=== PATIENT | female | born 1985 | race Two or more races ===

== ENCOUNTER 2017-12-13 16:29 | Emergency (ER) | payer OTHER, SELFPAY ==
[2017-12-13 16:31] VITALS: BP 127/90; PULSE 82; RESP 17; TEMP 36.9; O2SAT 97; BMI 22.3
--- NOTE | 2017-12-13 17:32 | ED.VISSUMM ---
- ER Visit Summary Date of Service: 12/13/17 Chief Complaint: Laceration volar surface left index finger History of Present Illness: The patient is a 32 F who is right-handed. She was cutting plastic with a knife. The knife went through the plastic cutting the volar surface of her left index finger. She has a circular flap laceration over the volar fat pad of the left index finger. She denies paresthesia, anesthesia motors. Last tetanus musician unknown. Physical Examination: Vital signs are noted and normal. There is a circular flap type laceration volar surface left index finger. The flexor digitorum superficialis and flexor digitorum profundus are intact. Capillary refill is normal. Sensation is intact, two-point. Capillary refill is normal. There is no subungual hematoma noted. Test Results: None Emergency Department Course and Treatment: Adacel IM and repair of laceration. Laceration was repaired by Dr. Carlos Cruz. Treatment Plan: Wound care and appropriate home-going instructions Disposition: Discharged home in stable improved condition Impression: Laceration volar surface left index finger initial encounter This note was generated with [employer] dictation software. It may contain incorrect words, spelling, and punctuation that were not noted in review of the chart prior to signing ED Disposition - Plan for ED Patient: Disposition: Home or Assisted Living Chief Complaint: Laceration Instructions: ED Laceration Hand Referrals: Care Physician,No Primary [Primary Care Provider] - Sid Domingo MD [STAFF PHYSICIAN] - 7 Days for suture removal Additional Instructions: Clean wound with peroxide and Q-tip 3 times a day then apply bacitracin ointment. If you have any concerns for infection follow-up with Dr. Rascon who you referred to since she do not have a primary care doctor.
[2017-12-13 17:41] VITALS: BP 118/68; PULSE 76; RESP 16; O2SAT 100
== END 2017-12-13 17:43 | disposition home or self-care (01) ==
PROVIDERS: Emergency Provider Emergency Medicine
DX: S61.211A Laceration without foreign body of left index finger without damage to nail, initial encounter (principal); W26.0XXA Contact with knife, initial encounter; Y93.89 Activity, other specified; Y92.89 Other specified places as the place of occurrence of the external cause; Y99.8 Other external cause status
CPT/HCPCS: 12001; 99282

== ENCOUNTER → 2020-01-25 | Outpatient (CLI) | payer SELFPAY | END | disposition home or self-care (01) | LOC: LABSPEC 23:31 | PROVIDERS: Visit Provider Family Medicine Geriatric Medicine | DX: Z03.818 Encounter for observation for suspected exposure to other biological agents ruled out (principal) | CPT/HCPCS: 87426 ==

== ENCOUNTER 2020-01-26 10:46 | Outpatient (RCR) | payer OTHER, SELFPAY | END 2020-02-07 23:59 | LOC: LABSPEC 10:46 | PROVIDERS: Visit Provider Family Medicine Geriatric Medicine | DX: Z03.818 Encounter for observation for suspected exposure to other biological agents ruled out (principal) | CPT/HCPCS: 87426 ==

== ENCOUNTER → 2020-04-17 03:02 | Outpatient (CLI) | payer OTHER, SELFPAY | PROVIDERS: Visit Provider Family Medicine Geriatric Medicine | DX: Z20.822 Contact with and (suspected) exposure to COVID-19 (principal) | CPT/HCPCS: 87426 ==

== ENCOUNTER 2020-06-09 19:54 | Outpatient (RCR) | payer OTHER, SELFPAY | END 2020-07-07 23:59 | LOC: EMPH 19:54 | PROVIDERS: Visit Provider Family Medicine Geriatric Medicine | DX: Z03.818 Encounter for observation for suspected exposure to other biological agents ruled out (principal) | CPT/HCPCS: 87426 ==

== ENCOUNTER 2020-06-10 10:12 | Outpatient (RCR) | payer OTHER, SELFPAY | END 2020-07-07 23:59 | LOC: LABSPEC 10:12 | PROVIDERS: Visit Provider Family Medicine Geriatric Medicine | DX: Z03.818 Encounter for observation for suspected exposure to other biological agents ruled out (principal) ==

== ENCOUNTER 2020-07-14 19:06 | Outpatient (RCR) | payer OTHER, SELFPAY | END 2020-08-07 23:59 | LOC: EMPH 19:06 | PROVIDERS: Visit Provider Family Medicine Geriatric Medicine | DX: Z03.818 Encounter for observation for suspected exposure to other biological agents ruled out (principal) | CPT/HCPCS: 87426 ==

== ENCOUNTER 2020-10-30 18:26 | Outpatient (RCR) | payer OTHER, SELFPAY | END 2020-10-30 19:00 | disposition home or self-care (01) | LOC: MASS 18:26 | PROVIDERS: Referring Provider Clinical Nurse Specialist; Visit Provider Clinical Nurse Specialist | DX: M54.9 Dorsalgia, unspecified (principal); M24.519 Contracture, unspecified shoulder | CPT/HCPCS: 97124 ==

== ENCOUNTER 2021-04-21 10:51 | Outpatient (RCR) | payer OTHER, SELFPAY | END 2021-05-07 23:59 | LOC: LABSPEC 10:51 | PROVIDERS: Referring Provider Family Medicine Geriatric Medicine; Visit Provider Family Medicine Geriatric Medicine | DX: Z20.828 Contact with and (suspected) exposure to other viral communicable diseases (principal) | CPT/HCPCS: 87426 ==

== ENCOUNTER → 2021-10-17 | Outpatient (CLI) | payer OTHER, SELFPAY ==
[2021-10-17 08:21] LABS: Hematocrit 34.2 % (37-47); Mean Corp Hgb Conc 32.2 g/dL (32-36); Mean Corpuscular Hgb 20.8 pg (27.0-32.0); Mean Corpuscular Volume 64.7 fL (81-99); Mean Platelet Vol. 10.9 fl (6.2-12.0); Platelet Count 337 K/mm3 (150-450); RBC Distribution Width CV 14.8 % (11.6-14.6); RBC Distribution Width SD 33.8 fl (35.1-43.9); Red Blood Count 5.29 M/mm3 (4.2-5.4); White Blood Count 11.3 K/mm3 (4.4-11.0)
[2021-10-17 11:31] LABS: HIV - WCH Non-Reactive (Nonreactive); Hepatitis B Surface Antigen Non-Reactive (Nonreactive); Hepatitis C Antibody Non-Reactive (Nonreactive); Rubella IgG Reactive (Nonreactive); Syphilis Antibodies Non-reactive
== END | disposition home or self-care (01) ==
LOC: LAB 07:44
PROVIDERS: PCP Internal Medicine; Visit Provider Obstetrics & Gynecology
DX: O09.521 Supervision of elderly multigravida, first trimester (principal); Z3A.12 12 weeks gestation of pregnancy
CPT/HCPCS: 36415; 85027; 86703; 86762; 86780; 86803; 86850; 86900; 86901; 87340

== ENCOUNTER → 2021-11-21 | Outpatient (CLI) | payer OTHER, SELFPAY | END | disposition home or self-care (01) | PROVIDERS: PCP Internal Medicine; Referring Provider Obstetrics & Gynecology; Visit Provider Obstetrics & Gynecology | DX: Z34.92 Encounter for supervision of normal pregnancy, unspecified, second trimester (principal); Z3A.16 16 weeks gestation of pregnancy | CPT/HCPCS: 36415 ==

== ENCOUNTER → 2022-01-17 | Outpatient (CLI) | payer OTHER, SELFPAY ==
[2022-01-17 09:30] LABS: Hematocrit 33.9 % (37-47); Hemoglobin 10.8 g/dL (12.0-15.0); Mean Corp Hgb Conc 31.9 g/dL (32-36); Mean Corpuscular Hgb 21.6 pg (27.0-32.0); Mean Corpuscular Volume 67.7 fL (81-99); Mean Platelet Vol. 10.8 fl (6.2-12.0); Platelet Count 318 K/mm3 (150-450); RBC Distribution Width CV 15.7 % (11.6-14.6); RBC Distribution Width SD 37.2 fl (35.1-43.9); Red Blood Count 5.01 M/mm3 (4.2-5.4)
[2022-01-17 10:09] LABS: Glucose Challenge Gest 1H 50g 137 mg/dL (70-140)
[2022-01-17 10:35] LABS: Syphilis Antibodies Non-reactive
== END | disposition home or self-care (01) ==
LOC: LAB 07:57
PROVIDERS: PCP Internal Medicine; Visit Provider Obstetrics & Gynecology
DX: O09.522 Supervision of elderly multigravida, second trimester (principal); Z3A.25 25 weeks gestation of pregnancy
CPT/HCPCS: 36415; 82950; 85027; 86780

== ENCOUNTER 2022-02-21 07:45 | Outpatient (CLI) | payer OTHER, SELFPAY ==
[2022-02-21 08:44] LABS: Glucose GTT-Gestation. Fasting 85 mg/dL (<105)
[2022-02-21 10:38] LABS: Glucose GTT-Gestational 2 Hr 153 mg/dL (<165)
[2022-02-21 11:34] LABS: Glucose GTT-Gestational 1 Hr 174 mg/dL (<190)
[2022-02-21 11:43] LABS: Glucose GTT-Gestational 3 Hr 142 L (<145)
== END 2022-02-21 23:59 | disposition home or self-care (01) ==
LOC: LAB 07:45
PROVIDERS: PCP Internal Medicine; Referring Provider Obstetrics & Gynecology; Visit Provider Obstetrics & Gynecology
DX: O99.810 Abnormal glucose complicating pregnancy (principal)
CPT/HCPCS: 36415; 82951; 82952

== ENCOUNTER 2022-04-11 05:03 | Inpatient (IN) | payer OTHER, SELFPAY ==
--- NOTE | 2022-04-09 12:22 | HP.PCM_ITS ---
History and Physical Date of Admission: 04/11/22 Pre-Op History and Physical ? HPI: The patient is a 37 year old female presenting for pre-operative visit. She is scheduled for , for repeat elective cs on 04/11/22. Procedure discussed along with risks, benefits and complications. Other alternatives discussed for management. Consent form signed? Yes. ? ? PAST MEDICAL HISTORY PAST MEDICAL HISTORY Diagnosis Date ? Asthma ? ? last attack 2009 in [facility] ? COVID-19 09/2019 ? Menstrual migraine without status migrainosus, not intractable 11/17/2020 ? ? PAST SURGICAL HISTORY PAST SURGICAL HISTORY Procedure Laterality Date ? BREAST CYST RIGHT, FLUID Right 03/10/2008 ? ? ? CURRENT MEDICATIONS Current Outpatient Medications Medication Sig Dispense Refill ? L.acidoph,plant-B.animal,long (PROBIOMAX DAILY DF) 30 billion cell cpDR Take by mouth. ? ? ? aspirin 81 mg chewable tablet Take 81 mg by mouth once daily. ? ? ? ferrous sulfate (IRON ORAL) Take by mouth. ? ? ? prental multivitamin 27 mg iron- 800 mcg tablet Take 1 tablet by mouth once daily. ? ? ? loratadine (CLARITIN ORAL) Take by mouth. ? ? ? No current facility-administered medications for this visit. ? ? ALLERGIES: Dust ? PERSONAL HISTORY: SOCIAL HISTORY Social History ? Tobacco Use ? Smoking status: Never ? Smokeless tobacco: Never Vaping Use ? Vaping Use: Never used Substance Use Topics ? Alcohol use: Not Currently ? ? Comment: occasionally ? Drug use: No ? FAMILY HISTORY: FAMILY HISTORY FAMILY HISTORY Problem Relation Age of Onset ? Hypertension Mother ? ? Recurrent UTI's Mother ? ? Alcohol/Drug Father ? ? smoker, Etoh ? Cancer Father ? ? Kidney ? No Known Problems Sister ? ? Asthma Brother ? ? No Known Problems Maternal Grandmother ? ? No Known Problems Maternal Grandfather ? ? Arthritis Paternal Grandmother ? ? Kidney failure Paternal Grandfather ? ? No Known Problems Son ? ? ? REVIEW OF SYMPTOMS: negative except as noted above PHYSICAL EXAMINATION: ? VITALS: Blood pressure 108/58, weight 148 lb (67.1 kg), last menstrual period 07/12/2021. ? GENERAL: The patient is well nourished, well hydrated in no acute distress. , The patient is oriented to time, place, and person. ABDOMEN: soft, non tender- gravid GENITALIA: Normal external genitalia ? IMPRESSION: @ 39 weeks ? PLAN: repeat cs at 39 weeks ? Pt has been counseled on risks/benefits and alternatives of surgery including but not limited to anesthesia, bleeding, infection, injury to pelvic structures including bowel, bladder, ureters and vessels. Pt wishes to proceed with surgery at this time. Risk of blood transfusion reviewed. Pre and post op instructions reviewed ? I have reviewed and updated past medical and surgical history, medications and allergies Lotus Herrera MD
[2022-04-11] VITALS (19 sets, daily range): BP systolic 90–117; BP diastolic 45–94; PULSE 68–97; RESP 14–16; TEMP 35.9–36.7; O2SAT 96–99; BMI 29.5
[2022-04-11] MEDS: Lactated Ringers 1,000 ML 999 ML IV (05:25)
[2022-04-11 05:39] LABS: Absolute Lymphocyte Count 1.43 X10^3/uL (0.83-4.51); Absolute Neutrophil Count 9.4 X10^3/uL (2.0-7.7); Basophil# 0.07 X10^3/uL; Basophil% 0.5 % (0-1); Eosinophil# 0.24 X10^3/uL; Eosinophils% 1.9 % (0-5); Hematocrit 36.9 % (37-47); Hemoglobin 11.4 g/dL (12.0-15.0); Lymphocyte # 1.43 X10^3/ul (0.83-4.51); Lymphocyte % 11.2 % (19-41); Mean Corp Hgb Conc 30.9 g/dL (32-36); Mean Corpuscular Hgb 21.3 pg (27.0-32.0); Mean Corpuscular Volume 68.8 fL (81-99); Mean Platelet Vol. 10.8 fl (6.2-12.0); Monocyte# 1.15 X10^3/uL; NRBC Flagged by Analyzer 0 % (0-5); Neutrophil # 9.36 X10^3/uL (2.7-7.7); Neutrophil % 73.6 % (47-70); Platelet Count 286 K/mm3 (150-450); RBC Distribution Width CV 15.3 % (11.6-14.6); RBC Distribution Width SD 36.7 fl (35.1-43.9); Red Blood Count 5.36 M/mm3 (4.2-5.4); White Blood Count 12.7 K/mm3 (4.4-11.0)
[2022-04-11] MEDS: Lactated Ringers 1,000 ML 150 ML IV (06:21)
[2022-04-11] MEDS: Acetaminophen 500 MG Tablet 1000 MG PO ×3 (07:14→18:58)
[2022-04-11] MEDS: Sodium Citrate/Citric Acid 30 ML UDC PO (07:14)
[2022-04-11] MEDS: Cefazolin 2 GM in 0.9% Normal Saline 100 ML IV (07:36)
--- NOTE | 2022-04-11 08:11 | OP.PCM_ITS ---
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 She was then placed in the supine position. She was prepped and draped in the normal sterile fashion. Anesthesia was found to be adequate. At this time a Pfannenstiel skin incision was made with a knife was carried down to the underlying layer of the fascia. The fascial incision was then extended laterally using traction. Attention was then turned to the superior aspect of the fascial edge was grasped with 2 straight Reena clamps tented up and the rectus muscle dissected off sharply bluntly. Rectus muscles were then in the midline bluntly and peritoneum was entered bluntly. Gentle opposing traction was placed. At this time the vesicouterine peritoneum was identified. Scalpel was used to make a uterine incision in a low transverse fashion. The uterus was then entered bluntly gentle opposing traction was placed to extend this incision. Membranes were ruptured clear. Infant's head was brought to the uterine incision was delivered atraumatically. nuchal x 1 loose- reduced. Cord was clamped and cut infant was handed to the waiting nursery team. The Placenta was removed from the uterus. The uterus was then re moved from the abdominal cavity. The uterus was cleared of all clots and debris using a lap. At this time the uterine incision was reapproximated using #1 Vicryl in a running locked fashion. 1-0 vicryl figure of eight sutures placed for hemostasis. Hemostasis was appreciated. Posterior cul-de-sac was then cleared of all clots and debris. Uterus was placed back in the abdominal cavity. Gutters were cleared of all clots and debris. Uterine incision was reevaluated and noted to be of excellent hemostasis. Angie placed over incision. At this time the peritoneum was grasped with Kellys reapproximated using #2 Vicryl suture in a running fashion. Angie placed over rectus. Fascia was then reapproximated using #1 Vicryl in a running fashion. angie placed in subcu layer. Subcu layer was reapproximated with #2 0 plain gut suture in an interrupted fashion. Subcu layer was closed using 4-0 Monocryl in a subcu fashion. Dry sterile dressing was applied. Instrument lap needle count correct ?2. Anticipated normal postoperative course. Presentation: Positive for Vertex Amniotic Membrane Rupture Type: Artificial Amniotic Fluid Description: Clear Placental Delivery Description: Expressed Placenta Disposition: [facility] Cord Vessel Description: 3 Vessels Cord Entanglement: Around neck x 1, loose Nuchal Cord Compression: Without compression Cord Gases: ABG and VBG (1 minute): 8 (5 minute): 9 Delayed Cord Clamping: Yes Complications Risks of Surgery Discussed w/Patient: Bleeding, Anesthesia Risks, Infection, Need for Future C-Sections and Injury to surrounding structure(s) including bowel and bladder Complications: none
[2022-04-11] MEDS: Ketorolac 30 MG/ML Syringe IV ×3 (08:56→20:23)
[2022-04-11] MEDS: Oxytocin 15 Units/NS 250ml 15 UNITS/250 ML IV.SOLN 83 UNITS IV (08:56)
[2022-04-11] MEDS: Lactated Ringers 1,000 ML 100 ML IV (11:41)
[2022-04-11] MEDS: DiphenhydrAMINE 25 MG Capsule PO ×2 (12:58→20:23)
[2022-04-11] MEDS: 0.9% Saline Lock 10 ML Syringe IV ×2 (14:48→20:24)
[2022-04-11] MEDS: Ferrous Sulfate 325 MG Tablet PO (19:09)
[2022-04-12 00:46] VITALS: BP 97/49; PULSE 85; RESP 16; TEMP 36.4
[2022-04-12] MEDS: Acetaminophen 500 MG Tablet 1000 MG PO ×3 (00:47→12:23)
[2022-04-12] MEDS: DiphenhydrAMINE 25 MG Capsule PO (02:25)
[2022-04-12] MEDS: Ketorolac 30 MG/ML Syringe IV (02:25)
[2022-04-12] MEDS: 0.9% Saline Lock 10 ML Syringe IV (02:25)
[2022-04-12 04:57] VITALS: BP 82/45; PULSE 79; RESP 16; TEMP 36.6
[2022-04-12 05:06] VITALS: BP 90/61
[2022-04-12 05:11] LABS: Hematocrit 31.2 % (37-47); Hemoglobin 9.5 g/dL (12.0-15.0); Mean Corp Hgb Conc 30.4 g/dL (32-36); Mean Corpuscular Hgb 21.1 pg (27.0-32.0); Mean Corpuscular Volume 69.3 fL (81-99); Mean Platelet Vol. 10.7 fl (6.2-12.0); Platelet Count 226 K/mm3 (150-450); RBC Distribution Width CV 15.3 % (11.6-14.6); RBC Distribution Width SD 37.6 fl (35.1-43.9); White Blood Count 12.2 K/mm3 (4.4-11.0)
--- NOTE | 2022-04-12 08:13 | PCM.PN.OB ---
Subjective Subjective Pt is doing well. Pain is controlled. She is ambulating and voiding without difficulty. She denies lightheadedness, dizziness, chest pain, shortness of breath, leg pain. She is tolerating regular diet without nausea or vomiting. She desires discharge today. Objective Data Objective Data Vital Signs: Vital Signs Temp Pulse Resp BP Pulse Ox O2 Del Method 97.9 F 79 16 90/61 99 Room Air 04/12/22 04:57 04/12/22 04:57 04/12/22 04:57 04/12/22 05:06 04/11/22 19:36 04/12/22 04:57 Oxygen Delivery Method Room Air Weight: 151 lb 3.2 oz Body Mass Index (BMI) 29.5 Intake & Output: Intake and Output for Last 24 Hours 04/10/22 04/11/22 04/12/22 23:59 23:59 23:59 Intake Total 2248.80 / 2248.80 Output Total 1150 / 1150 1000 / 1000 Balance 1098.80 / 1098.80 -1000 / -1000 Lab / Micro Data Result Diagrams: 04/12/22 05:00 Labs: Laboratory Results - last 24 hr 04/12/22 05:00: WBC 12.2 H, RBC 4.50, Hgb 9.5 L, Hct 31.2 L, MCV 69.3 L, MCH 21.1 L, MCHC 30.4 L, RDW Std Deviation 37.6, RDW Coeff of Chelsi 15.3 H, Plt Count 226, MPV 10.7 Physical Exam Const alert and no apparent distress General Appearance: comfortable HEENT normocephalic Resp normal respiratory effort GI soft to palpation GI Narrative: Soft and ATTP, non acute, dressing c/d/i Assessment & Plan (1) Delivery by section: PLAN: She is postop day 1 from a repeat section. Vital signs are stable. She is meeting milestones for discharge. She desires to go home today. Discharge instructions reviewed. To follow-up in the office in 1 week.
--- NOTE | 2022-04-12 08:18 | DCINST_ITS ---
Discharge Instructions Diet Discharge Diet: No restrictions Activity Discharge Activity: May Not Drive and May Shower May resume sexual activity in: 6 weeks Ice area for (Minutes): 15 Weight Bearing Status: Weight bearing as tolerated Lifting Restrictions: nothing heavier than baby Dressing / Incision Call your doctor if your incision/area has: Continuous Slow Oozing, Sudden Increased Bleeding, Increased Pain/ Swelling, Increased Redness, Foul Smelling Discharge and Swelling at the incision site Call your doctor if you observe: Fever of 101 or Higher, Coldness, Increased Pain, Numbness or Tingling, Change in Color, Inability to urinate, Inability to have a bowel movement, Using more than 1 pad per hour, Shortness of breath, Dizziness, Fainting spells, Swelling in the ankles, Chest pain, Increased palpitations (irregular heartbeat), Calf discomfort and Uncontrolled pain Suture Line Care: Avoid Pulling/Pushing and Avoid Pinching/Bending Remove Dressing in: 3 days Cleanse incision/area with: Soap & Water Follow Up Care Please Follow Up With: Lotus Puckett MD When: 1 week for incision check 6 weeks for exam Test Results: Test results from this visit will be discussed in further detail at your follow- up appointment, if applicable. Discharge Plan Admission Admit Date/Time: 04/11/22 05:03 Primary Reason for Your Visit: Delivery Attending Provider: Lotus Puckett Primary Care Provider: Shana Silva Instructions Patient Instructions: After a Discharge Orders/Prescriptions Prescriptions: New oxycodone-acetaminophen [Percocet] 5-325 mg tablet 1 tab PO Q6H PRN (Reason: pain) 7 Days Qty: 10 0RF ibuprofen 600 mg tablet 600 mg PO Q6H PRN (Reason: pain) Qty: 30 0RF docusate sodium [Colace] 100 mg capsule 100 mg PO BID Qty: 30 0RF Continued ferrous sulfate [Iron (ferrous sulfate)] 325 mg (65 mg iron) Tablet 325 mg PO DAILY [id number] 1 mg Tablet 1 tab PO DAILY Discontinued aspirin 81 mg Tablet 81 mg PO DAILY Referrals / Follow Up: Shana Silva MD [Primary Care Provider] - Disposition Disposition (needs filled in before D/C Order can be placed): Home, Self Care
[2022-04-12 08:56] VITALS: BP 99/57; PULSE 97; RESP 18; TEMP 36.8; O2SAT 98
[2022-04-12] MEDS: Ibuprofen 600 MG Tablet PO ×2 (09:11→14:31)
[2022-04-12] MEDS: Senna/Docusate Sodium 1 Tablet PO (09:11)
[2022-04-12] MEDS: Ferrous Sulfate 325 MG Tablet PO (12:20)
[2022-04-12 14:33] VITALS: BP 104/57; PULSE 98; RESP 14; TEMP 36.3; O2SAT 98
== END 2022-04-12 14:45 | disposition home or self-care (01) | DRG 788 ==
PROVIDERS: Admitting Provider Obstetrics & Gynecology; PCP Internal Medicine; Visit Provider Obstetrics & Gynecology
PROC: 10D00Z1 Extraction of Products of Conception, Low, Open Approach (ICD-10-PCS; CPT 59514; principal; 2022-04-11 06:55)
DX: O34.219 Maternal care for unspecified type scar from previous cesarean delivery (principal); O69.81X0 Labor and delivery complicated by cord around neck, without compression, not applicable or unspecified; Z3A.39 39 weeks gestation of pregnancy; Z37.0 Single live birth; Z86.16 Personal history of COVID-19
CPT/HCPCS: 59025; 59050; 85025; 85027; 86850; 86900; 86901; 99221; J7120; A4216; G0378; J2405

== ENCOUNTER → 2022-11-04 | Outpatient (CLI) | payer OTHER, SELFPAY ==
[2022-11-04 10:42] LABS: Basophil# 0.07 X10^3/uL; Basophil% 0.8 % (0-1); Eosinophil# 0.52 X10^3/uL; Eosinophils% 5.8 % (0-5); Hematocrit 44.7 % (37-47); Hemoglobin 13.6 g/dL (12.0-15.0); Lymphocyte % 20.1 % (19-41); Mean Corp Hgb Conc 30.4 g/dL (32-36); Mean Corpuscular Hgb 19.9 pg (27.0-32.0); Mean Corpuscular Volume 65.4 fL (81-99); Mean Platelet Vol. 10.3 fl (6.2-12.0); Monocyte# 0.54 X10^3/uL; NRBC Flagged by Analyzer 0 % (0-5); Neutrophil # 6.01 X10^3/uL (2.7-7.7); Platelet Count 378 K/mm3 (150-450); RBC Distribution Width CV 16.7 % (11.6-14.6); RBC Distribution Width SD 33.8 fl (35.1-43.9); Red Blood Count 6.84 M/mm3 (4.2-5.4)
[2022-11-04 10:44] LABS: Erythrocyte Sedimentation Rate 13 mm/hr (0-30)
[2022-11-04 11:05] LABS: Anion Gap 4 (5-15); BUN 7 mg/dL (7-18); CRP 9.94 mg/L (0.0-3.0); Calcium,Total 9.3 mg/dL (8.5-10.1); Chloride 104 mmol/L (98-107); Creatinine, Serum 0.64 mg/dL (0.55-1.02); EST Glomerular Filtration Rate 112 mL/min (>60); Est Glom Filt Rate - Afr Amer 136 mL/min (>60); Glucose 89 mg/dL (74-106); Potassium 3.9 mmol/L (3.5-5.1); Sodium Level 138 mmol/L (136-145)
== END | disposition home or self-care (01) ==
PROVIDERS: PCP Internal Medicine; Referring Provider Internal Medicine; Visit Provider Internal Medicine
DX: M25.50 Pain in unspecified joint (principal)
CPT/HCPCS: 36415; 80048; 85025; 85652; 86140; 87811

== ENCOUNTER 2023-10-29 09:12 | Emergency (ER) | payer OTHER, SELFPAY ==
[2023-10-29 09:13] VITALS: BP 139/98; PULSE 82; RESP 16; TEMP 36.5; O2SAT 99; BMI 22.4
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
[2023-10-29] MEDS: Ibuprofen 600 MG Tablet PO (09:35)
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
[2023-10-29 10:32] VITALS: BP 116/74; PULSE 80; RESP 16; TEMP 36.4; O2SAT 98
== END 2023-10-29 10:33 | disposition home or self-care (01) ==
PROVIDERS: Emergency Provider Emergency Medicine; PCP Internal Medicine; Visit Provider Emergency Medicine
DX: S62.343A Nondisplaced fracture of base of third metacarpal bone, left hand, initial encounter for closed fracture (principal); S62.345A Nondisplaced fracture of base of fourth metacarpal bone, left hand, initial encounter for closed fracture; J45.909 Unspecified asthma, uncomplicated; V43.52XA Car driver injured in collision with other type car in traffic accident, initial encounter
CPT/HCPCS: 29125; 73130; 99282

== ENCOUNTER → 2023-11-03 | Outpatient (CLI) | payer OTHER, SELFPAY ==
--- NOTE | 2023-11-03 10:19 | RAD_ITS ---
INDICATION: metacarpal fractures EXAMINATION/TECHNIQUE: X-RAY - LEFT XR Hand Min 3 Views 3 VIEWS COMPARISON: FINDINGS: SOFT TISSUES: There is soft tissue swelling. No radiopaque foreign body. BONES/JOINTS: There are fractures of the third and fourth metacarpal bones . Preservation of the joint space.. No sclerotic or destructive changes observed. RAD/Hand Min 3 Views IMPRESSION: Third and fourth metacarpal fractures. Electronically Signed: Esteban Chandler DO at 21:38 EDT ,
== END | disposition home or self-care (01) ==
PROVIDERS: PCP Internal Medicine; Referring Provider Surgery Plastic and Reconstructive Surgery; Visit Provider Surgery Plastic and Reconstructive Surgery
DX: S63.30 Traumatic rupture of unspecified ligament of wrist (principal); L25.9 Unspecified contact dermatitis, unspecified cause; X58.XXXA Exposure to other specified factors, initial encounter
CPT/HCPCS: 73130; 87102; 87206

== ENCOUNTER 2023-11-11 11:54 | Day surgery (SDC) | payer OTHER, SELFPAY ==
[2023-11-05] MEDS: Cefazolin 2 GM in 0.9% Normal Saline (100mL Bag) 100 ML IV (13:55)
[2023-11-11] VITALS (13 sets, daily range): BP systolic 100–123; BP diastolic 70–95; PULSE 57–90; RESP 14–18; TEMP 36.2–36.6; O2SAT 99–100; BMI 24.4
[2023-11-11 12:20] LABS: Internal QC Validated? YES +Cl - CLEAR BKGD; Pregnancy, Urine Negative Negative
[2023-11-11] MEDS: Lactated Ringers 1,000 ML 15 ML IV (12:47)
--- NOTE | 2023-11-11 13:24 | PRE.ANES_ITS ---
ASA Classification* ASA Classification ASA Classification: 2 Assessment & Plan Anesthesia* Anesthesia Assessment Anesthesia Assessment: Discussed sedation and/or anesthesia options, risks, benefits, and alternatives with patient/parents/legal guardian/POA. Questions invited. The patient/parents/legal guardian/POA seems to understand and agrees to proceed with anesthesia plan. Reviewed the physical assessment, medical history, allergy history and patient home medications list prior to surgery/procedure/anesthetic and documented any changes. Performed airway and anesthesia risk assessments. Anesthesia Type Anesthesia Type: General (see written pre anesthesia record for full assessment) Anesthesia Focused Assessment* Temperature: 97.8 F Pulse Rate: 60 Blood Pressure: 112/78 Respiratory Rate: 16 Pulse Ox: 99 Airway Assessment Mouth opens: >3 cm Mallampati Score: II Focused Labs Anesthesia Preop lab: CBC WBC 9.0 K/mm3 (4.4-11.0) 11/04/22 09:53 RBC 6.84 M/mm3 (4.2-5.4) H 11/04/22 09:53 Hgb 13.6 g/dL (12.0-15.0) 11/04/22 09:53 Hct 44.7 % (37-47) 11/04/22 09:53 Plt Count 378 K/mm3 (150-450) 11/04/22 09:53 CHEMISTRY Potassium 3.9 mmol/L (3.5-5.1) 11/04/22 09:53 Sodium 138 mmol/L (136-145) 11/04/22 09:53 BUN 7 mg/dL (7-18) 11/04/22 09:53 Creatinine 0.64 mg/dL (0.55-1.02) 11/04/22 09:53 Glucose 89 mg/dL (74-106) 11/04/22 09:53 COAG Urine Test Negative Negative 11/11/23 12:10 Pre-Assessment Diagnosis/Proposed Procedure Planned Operative Procedure(s): (L) Closed reduction percutaneous pinning metacarpal fracture Anesthesia History 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 When Was Last Pacemaker Check QUESTION #4 FULL TEXT: You/Your Family Experience fever (hyperthermia) with Anesthesia Last Oral Intake Last Oral intake: Last Oral Intake NPO since 22:00 11/11/23 12:55 Meds taken in AM with sips of water? Meds patient instructed to take am of surgery PONV PONV - costume specialist: PONV - costume specialist Female Yes 11/04/23 14:06 HX of Motion Sickness No 11/04/23 14:06 HX of N/V After Surgery No 11/04/23 14:06 Non-Smoker Yes 11/04/23 14:06 Duration of Surgery greater Yes 11/04/23 14:06 than 60 minutes Number of Risk Factors 3 11/04/23 14:06 PONV Score Moderate Risk 11/04/23 14:06 Height & Weight Height & Weight: Anesthesia: Height & Weight Height 5 ft 11/11/23 12:55 Weight: 56.7 kg 11/11/23 12:55 Body Mass Index (BMI) 24.4 11/11/23 12:55 Respiratory Assessment Respiratory Assessment - costume specialist: Respiratory Tract Infection Hx - costume specialist Hx Respiratory Tract Infection No 11/04/23 14:06 STOP Sleep Apnea STOP Sleep Apnea - costume specialist: STOP Sleep Apnea - costume specialist Hx Hypertension No 11/04/23 14:06 Hx Sleep Apnea No 11/04/23 14:06 CPAP BIPAP Do you snore loudly (louder No 11/04/23 14:06 than talking or can be heard Do you often feel tired/ No 11/04/23 14:06 fatigued/ sleepy during daytime? Has anyone observed you stop No 11/04/23 14:06 breathing during sleep? STOP Results Negative 11/04/23 14:06 QUESTION #5 FULL TEXT : Do you snore loudly (louder than talking or can be heard through closed doors)? 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 Specify any problems Hx of Preganancy in last 3 No 11/04/23 14:06 Months Nurse Filling Out Transfusion VCHRISTIN 11/04/23 14:06 & Questions: Date: 11/04/23 11/04/23 14:06 Time: 14:07 11/04/23 14:06 Patient unable to answer at this time (ie. confused, unrespo /Reproduction History /Reproductive History - costume specialist: /Reproductive Hx- costume specialist Hx Now No 11/04/23 14:06 Gestational Age (in weeks): EDC: Hx Hx Para Hx Section SAB No 11/04/23 14:06 Active Medications Active Medications: Current Medications Generic Name Dose Route Start Last Admin Trade Name Freq PRN Reason Stop Dose Admin Lactated Ringer's 1,000 mls @ 15 mls/hr 11/11/23 12:15 11/11/23 12:47 IV 15 mls/hr .Q48H JANET Administration PFSH Medical History Wears contact lenses Wears glasses Alcohol use Anemia Migraine headache History of edema History of seasonal allergies Breast disorder Asthma Home Medications ?Medication ?Instructions ?Recorded ?Last Taken ?Type ferrous sulfate 325 mg (65 mg 325 mg PO QODAY Check with primary 04/11/22 04/10/22 19:00 History iron) tablet (Iron (ferrous doctor sulfate)) norethindrone (contraceptive) 0.35 0.35 mg PO DAILY 10/30/23 11/10/23 History mg tablet (Jencycla) acetaminophen 325 mg tablet (Pain 650 mg PO Q6H 11/04/23 Unknown History Relief (acetaminophen)) amoxicillin 875 mg-potassium 1 tab PO Q12H 7 days #14 tabs 11/05/23 11/10/23 Rx clavulanate 125 mg tablet mupirocin 2 % topical ointment 1 applic topical BID 7 days #15 11/05/23 11/10/23 Rx grams Allergy/AdvReac Type Severity Reaction Status Date / Time No Known Allergies Allergy Verified 11/11/23 12:41 Surgical History Delivery by section History of surgery Previous section Social History Smoking Status: Never smoker alcohol intake: current alcohol intake frequency: holidays/special occasions only additional social history: denies vaping,denies edibles, denies marijuana use, uses ibuprofen as needed, denies aspirin use Review of Systems (Anesthesia) ROS Narrative System reviewed and no additional complaints, except as documented.
--- NOTE | 2023-11-11 13:24 | PCM.HP.STD ---
HPI - General HPI Narrative TOMAS TILLEY, is a 38 F who presents for left hand fracture fixation Current Encounter (DATE OF SURGERY H&P UPDATE): I saw and examined the patient this morning in pre-operative holding. We discussed risks and benefits of today's surgery and they would like to proceed. NO CHANGE in health history since last seen and evaluated. Ready to proceed with surgery. [facility] Medical History Wears contact lenses Wears glasses Alcohol use Anemia Migraine headache History of edema History of seasonal allergies Breast disorder Asthma Home Medications ?Medication ?Instructions ?Recorded ?Last Taken ?Type ferrous sulfate 325 mg (65 mg 325 mg PO QODAY Check with primary 04/11/22 04/10/22 19:00 History iron) tablet (Iron (ferrous doctor sulfate)) norethindrone (contraceptive) 0.35 0.35 mg PO DAILY 10/30/23 11/10/23 History mg tablet (Jencycla) acetaminophen 325 mg tablet (Pain 650 mg PO Q6H 11/04/23 Unknown History Relief (acetaminophen)) amoxicillin 875 mg-potassium 1 tab PO Q12H 7 days #14 tabs 11/05/23 11/10/23 Rx clavulanate 125 mg tablet mupirocin 2 % topical ointment 1 applic topical BID 7 days #15 11/05/23 11/10/23 Rx grams Allergy/AdvReac Type Severity Reaction Status Date / Time No Known Allergies Allergy Verified 11/11/23 12:41 Surgical History Delivery by section History of surgery Previous section Social History Smoking Status: Never smoker alcohol intake: current alcohol intake frequency: holidays/special occasions only additional social history: denies vaping,denies edibles, denies marijuana use, uses ibuprofen as needed, denies aspirin use Vital Signs Vital Signs Vital Signs: 11/11/23 12:55 11/11/23 12:55 Temperature 97.8 F Temperature Source Temporal Pulse Rate 60 Respiratory Rate 16 Respiratory Pattern Normal Blood Pressure 112/78 Blood Pressure Mean 89 Blood Pressure Source Monitor Blood Pressure Position Sitting Blood Pressure Location Right Arm Pulse Ox 99 Oxygen Delivery Method Room Air Weight Weight: 125 lb 0.034 oz Body Mass Index (BMI) 24.4 Physical Exam Narrative Splint removed. No clinical signs of skin infection on left hand, normal skin throughout. Persistent slight angulation of ring finger. Results Lab / Micro Data Labs: Laboratory Results - last 24 hr 11/11/23 12:10: Urine Test Negative Assessment & Plan Assessment/Plan (1) Hand fracture, left: PLAN: Plan INTERVAL H&P PLAN, DATE OF SURGERY: We will proceed with surgery today. I talked to her extensively today in preop about the risks of infection at the pins/bone. She understands the risks and benefits (doing surgery before fractures heal in poor position). She has been compliant with treatment using mupirocin and Augmentin per PCR of skin scraping (MSSA) from left hand last week (total 1 week of treatment). She would like to proceed with surgery. No clinical infection on my exam of her hand today (looks cleared). She also understands risks of failure to obtain desired results , need for repeat surgery, non-union/malunion of the fractures.
[2023-11-11] MEDS: Cefazolin 2 GM in 0.9% Normal Saline (100mL Bag) 100 ML IV (13:55)
--- NOTE | 2023-11-11 14:45 | RAD_ITS ---
STUDY: X-RAY - LEFT HAND REASON FOR EXAM: Female, 38 years old. Intraoperative digital documentation images TECHNIQUE: 7 intraoperative digital view(s) of the hand. COMPARISON: Left hand x-rays dated November 03, 2023 FINDINGS: 6 intraoperative digital documentation views show wire placement in the previously described third and fourth proximal metacarpals. 7 images saved. Total exposure time 5 minutes 56 seconds. A single exposure 15 seconds. Total DAP 31.7275 cGy/cm2. Total Air Kerma 1.8885 mGy. RAD/Hand 2 Views IMPRESSION: Intraoperative digital documentation views. Electronically Signed: Osmel Cochran MD at 15:34 EDT ,
[2023-11-11] MEDS: Bupiv/Epi 0.25% 30 ML Vial (15:15)
--- NOTE | 2023-11-11 15:32 | PCM.POST.ANE ---
Anesthesia: Postop Eval I Current Vital Signs Temperature: 97.1 F Pulse Rate: 88 Blood Pressure: 120/78 Respiratory Rate: 16 Pulse Ox: 99 Oxygen Delivery Method: Room Air Assessment Airway patent: Yes Spontaneous unlabored respirations: Yes Mental status: Awake and Calm nausea: No Vomiting: No Anesthesia Complication: No Fluid Hydration Crystalloid volume administer (ml): 1,200 Total IV fluid infused: 1,200 Progress Note Anesthesia document: Postop Eval 1 completed: Yes
--- NOTE | 2023-11-11 15:51 | POSTOPAN2_ITS ---
Anesthesia Postop Eval I Sum Postop Eval Completion status Anesthesia document: Postop Eval 1 completed: Yes Anesthesia Postop Eval I Summary Anesthesia Postop Eval I Summary: Anesthesia Postop Eval I: Assessment Summary Airway patent Yes 11/11/23 15:33 COLLAR TURNER OPERATOR.[email or web address] Spontaneous unlabored Yes 11/11/23 15:33 COLLAR TURNER OPERATOR.[email or web address] respirations Mental status Awake,Calm 11/11/23 15:33 COLLAR TURNER OPERATOR.[email or web address] nausea No 11/11/23 15:33 COLLAR TURNER OPERATOR.[email or web address] Vomiting No 11/11/23 15:33 COLLAR TURNER OPERATOR.[email or web address] Anesthesia Postop Eval I: Fluid Summary Crystalloid volume administer 1,200 11/11/23 15:33 COLLAR TURNER OPERATOR.SKOBY (ml) Colloids volume administered ( ml) Blood Product volume administered (ml) Total IV fluid infused 1,200 11/11/23 15:33 COLLAR TURNER OPERATOR.MAURIZIO Anesthesia Postop Eval I: Summary Notes Anesthesia Complication No 11/11/23 15:33 COLLAR TURNER OPERATOR.MAURIZIO Anesthesia Complication Comment: Post-operative progress note Anesthesia: Postop Eval II Evaluation Mental status: Awake Pain Level: 0 nausea: No Vomiting: No
--- NOTE | 2023-11-11 15:51 | PCM.POSTANE2 ---
Anesthesia Postop Eval I Sum Postop Eval Completion status Anesthesia document: Postop Eval 1 completed: Yes Anesthesia Postop Eval I Summary Anesthesia Postop Eval I Summary: Anesthesia Postop Eval I: Assessment Summary Airway patent Yes 11/11/23 15:33 SIGN POSTER.[email or web address] Spontaneous unlabored Yes 11/11/23 15:33 SIGN POSTER.[email or web address] respirations Mental status Awake,Calm 11/11/23 15:33 SIGN POSTER.[email or web address] nausea No 11/11/23 15:33 SIGN POSTER.[email or web address] Vomiting No 11/11/23 15:33 SIGN POSTER.[email or web address] Anesthesia Postop Eval I: Fluid Summary Crystalloid volume administer 1,200 11/11/23 15:33 SIGN POSTER.[email or web address] (ml) Colloids volume administered ( ml) Blood Product volume administered (ml) Total IV fluid infused 1,200 11/11/23 15:33 SIGN POSTER.MAURIZIO Anesthesia Postop Eval I: Summary Notes Anesthesia Complication No 11/11/23 15:33 SIGN POSTER.MAURIZIO Anesthesia Complication Comment: Post-operative progress note Anesthesia: Postop Eval II Evaluation Mental status: Awake Pain Level: 0 nausea: No Vomiting: No
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
--- NOTE | 2023-11-11 18:30 | SUR.PHASEII ---
PATIENT VOMITED A SMALL AMOUNT OF CLEAR LIQUID WHEN SHE GOT INTO THE WHEEL CHAIR. SHE STATED SHE DID NOT EAT ANYTHING YET. I OFFERED HER GINGERALE AND SALTINES. SHE WANTED THEM TO TAKE WITH HER. SHE WAS FEELING BETTER BEFORE I MOVED THE WHEELCHAIR TO THE ENTRANCE.
== END 2023-11-11 18:32 | disposition home or self-care (01) ==
LOC: SDC 11:56 → AC 11:56
PROVIDERS: Anesthesiology; PCP Internal Medicine; Referring Provider Surgery Plastic and Reconstructive Surgery; Visit Provider Surgery Plastic and Reconstructive Surgery
PROC: (CPT 26608; principal; 2023-11-11 11:45)
DX: S62.303A Unspecified fracture of third metacarpal bone, left hand, initial encounter for closed fracture (principal); S62.305A Unspecified fracture of fourth metacarpal bone, left hand, initial encounter for closed fracture; V49.9XXA Car occupant (driver) (passenger) injured in unspecified traffic accident, initial encounter; D64.9 Anemia, unspecified; J45.909 Unspecified asthma, uncomplicated; Z79.899 Other long term (current) drug therapy
CPT/HCPCS: 26608 ×2; 01820; 73120; 76000; 81025; J7120; J2405

== ENCOUNTER → 2023-11-20 | Outpatient (CLI) | payer OTHER, SELFPAY ==
--- NOTE | 2023-11-20 15:10 | RAD_ITS ---
STUDY: X-RAY - LEFT HAND REASON FOR EXAM: Female, 38 years old. Postoperative evaluation after left hand surgery. TECHNIQUE: 3 view(s) of the hand. COMPARISON: November 11, 2023 FINDINGS: Wires placed in the third and fourth metacarpals. Minimally displaced oblique fractures of the bases of the third and fourth metacarpals again identified. No complicating features identified. Near anatomic alignment. Focal soft tissue swelling. RAD/Hand Min 3 Views IMPRESSION: Postsurgical changes with fractures in near-anatomic alignment. No complicating features. Electronically Signed: Osmel Cochran MD at 10:22 EDT ,
== END | disposition home or self-care (01) ==
PROVIDERS: PCP Internal Medicine; Referring Provider Surgery Plastic and Reconstructive Surgery; Visit Provider Surgery Plastic and Reconstructive Surgery
DX: S62.92XA Unspecified fracture of left hand, initial encounter for closed fracture (principal)
CPT/HCPCS: 73130

== ENCOUNTER → 2023-12-05 | Outpatient (CLI) | payer OTHER, SELFPAY ==
--- NOTE | 2023-12-05 15:28 | RAD_ITS ---
STUDY: X-RAY - LEFT HAND REASON FOR EXAM: Female, 38 years old. Left hand trauma. TECHNIQUE: 3 views of the left hand. COMPARISON: Left hand radiographs dated 11/20/2023. FINDINGS: Unchanged K-wires in the third and fourth metacarpals. Unchanged minimally displaced oblique fractures of the bases of the third and fourth metacarpals. No complicating features identified. Near anatomic alignment. Slightly improved soft tissue swelling along the dorsum of the hand. RAD/Hand Min 3 Views IMPRESSION: Slightly improved soft tissue swelling along the dorsum of the hand. Electronically Signed: Franklyn Cruz MD at 15:42 EDT ,
== END | disposition home or self-care (01) ==
PROVIDERS: PCP Internal Medicine; Referring Provider Surgery Plastic and Reconstructive Surgery; Visit Provider Surgery Plastic and Reconstructive Surgery
DX: S62.92XA Unspecified fracture of left hand, initial encounter for closed fracture (principal)
CPT/HCPCS: 73130

== ENCOUNTER → 2023-12-11 | Outpatient (CLI) | payer OTHER, SELFPAY ==
--- NOTE | 2023-12-11 13:10 | RAD_ITS ---
HISTORY: trauma. TECHNIQUE: XR Hand Min 3 Views. COMPARISON: 12/05/2023. FINDINGS: BONES : Unchanged appearance of K wires transfixing third and fourth metacarpal fractures. Unchanged near anatomic alignment with mildly increased callus formation of the third metacarpal fracture and unchanged appearance of the fourth metacarpal fracture Screw tracks in the second and fifth metacarpals again seen. JOINTS: No dislocation. SOFT TISSUES: Mild soft tissue swelling. RAD/Hand Min 3 Views IMPRESSION: ORIF left third and fourth metacarpal fractures as above. Electronically Signed: Kathleen Dewitt MD at 13:57 EDT ,
== END | disposition home or self-care (01) ==
LOC: RAD 13:10
PROVIDERS: PCP Internal Medicine; Referring Provider Surgery Plastic and Reconstructive Surgery; Visit Provider Surgery Plastic and Reconstructive Surgery
DX: S62.92XA Unspecified fracture of left hand, initial encounter for closed fracture (principal)
CPT/HCPCS: 73130

== ENCOUNTER → 2023-12-23 | Outpatient (CLI) | payer OTHER, SELFPAY ==
--- NOTE | 2023-12-23 10:20 | RAD_ITS ---
STUDY: X-RAY - LEFT HAND REASON FOR EXAM: Female, 38 years old. Pain. TECHNIQUE: 3 views of the left hand. COMPARISON: None. FINDINGS: Normal radiocarpal articulation. Normal distal radioulnar joint. Normal visualized carpal bones. Normal carpal articulations Normal carpometacarpal articulation of the thumb. Normal second through fifth carpometacarpal joints. The previously seen K wires transfixing the third and fourth metacarpal fractures have been removed. There are multiple pin/screw channels throughout the second through fifth metacarpals. Again seen are healing third and fourth metacarpal fractures. Normal metacarpophalangeal joint of the thumb. Normal interphalangeal joint of the thumb. Normal proximal and distal phalanges of the thumb. Normal metacarpophalangeal joints of the second through fifth fingers. Normal proximal and distal interphalangeal joints of the second through fifth fingers. Normal phalanges of the second through fifth fingers. The soft tissue structures are unremarkable. RAD/Hand Min 3 Views IMPRESSION: Previously seen K wires transfixing the third and fourth metacarpal fractures have been removed. Healing third and fourth metacarpal fractures. Electronically Signed: Franklyn Cruz MD at 15:58 EDT ,
== END | disposition home or self-care (01) ==
LOC: MTRAD 10:20
PROVIDERS: PCP Internal Medicine; Referring Provider Surgery Plastic and Reconstructive Surgery; Visit Provider Surgery Plastic and Reconstructive Surgery
DX: S62.92XA Unspecified fracture of left hand, initial encounter for closed fracture (principal)
CPT/HCPCS: 73130

== ENCOUNTER → 2024-01-06 | Outpatient (CLI) | payer OTHER, SELFPAY ==
--- NOTE | 2024-01-06 10:55 | RAD_ITS ---
INDICATION: hand trauma EXAMINATION/TECHNIQUE: X-RAY - LEFT XR Hand Min 3 Views 3 VIEWS COMPARISON: Prior study dated: 12/23/2023 FINDINGS: SOFT TISSUES: No soft tissue swelling or gas. No radiopaque foreign body. BONES/JOINTS: Nondisplaced fractures of the third and fifth metacarpals are again seen appears slightly displaced fracture of the fourth metacarpal. The alignment and position has not significantly changed. No new fractures are seen. The joint spaces are within normal limits. No sclerotic or destructive changes observed. RAD/Hand Min 3 Views IMPRESSION: Fractures of the third, fourth and fifth metacarpal essentially unchanged in alignment or position. Electronically Signed: Eleazar Torres MD at 13:17 EDT ,
== END | disposition home or self-care (01) ==
LOC: MTRAD 10:55
PROVIDERS: PCP Internal Medicine; Referring Provider Surgery Plastic and Reconstructive Surgery; Visit Provider Surgery Plastic and Reconstructive Surgery
DX: S62.92XA Unspecified fracture of left hand, initial encounter for closed fracture (principal)
CPT/HCPCS: 73130

== ENCOUNTER → 2024-01-19 | Outpatient (CLI) | payer OTHER, SELFPAY | END | disposition home or self-care (01) | LOC: LABSPEC 09:59 | PROVIDERS: PCP Internal Medicine; Referring Provider Nurse Practitioner Family; Visit Provider Nurse Practitioner Family | DX: R30.0 Dysuria (principal) | CPT/HCPCS: 87077; 87086; 87088; 87186 ==

== ENCOUNTER → 2024-01-27 | Outpatient (CLI) | payer OTHER, SELFPAY ==
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
== END | disposition home or self-care (01) ==
LOC: MTRAD 10:12
PROVIDERS: PCP Internal Medicine; Referring Provider Surgery Plastic and Reconstructive Surgery; Visit Provider Surgery Plastic and Reconstructive Surgery
DX: S62.92XA Unspecified fracture of left hand, initial encounter for closed fracture (principal)
CPT/HCPCS: 73130

== ENCOUNTER → 2024-02-24 | Outpatient (CLI) | payer OTHER, SELFPAY ==
--- NOTE | 2024-02-24 11:33 | RAD_ITS ---
EXAM: XR LEFT HAND COMPLETE, 3 OR MORE VIEWS CLINICAL INDICATION: Left hand trauma s/p percutaneous pinning TECHNIQUE: Frontal, lateral and oblique views of the left hand. COMPARISON: January 27, 2024. Exams back to November 11, 2023. FINDINGS: BONES/JOINTS: There is persistent oblique fracture of the proximal third of the fourth metacarpal and similar finding oblique line in the distal third of the fifth metacarpal, with stable alignment, no teresa distraction and no bone destruction. The known proximal third metacarpal fracture is not well seen, minimal cortical thickening and callus. Preservation of the joint space. SOFT TISSUES: Mild dorsal soft tissue swelling similar to prior exam. No radiopaque foreign body. RAD/Hand Min 3 Views IMPRESSION: Similar fractures of third through fifth metacarpals and similar soft tissue swelling. No bone destruction. Electronically Signed: Carmen Marinelli MD at 1:41 EST ,
== END | disposition home or self-care (01) ==
LOC: MTRAD 11:33
PROVIDERS: PCP Internal Medicine; Referring Provider Surgery Plastic and Reconstructive Surgery; Visit Provider Surgery Plastic and Reconstructive Surgery
DX: S62.92XA Unspecified fracture of left hand, initial encounter for closed fracture (principal)
CPT/HCPCS: 73130

== ENCOUNTER → 2024-04-06 | Outpatient (CLI) | payer OTHER, SELFPAY ==
--- NOTE | 2024-04-06 10:49 | RAD_ITS ---
PROCEDURE: HAND MIN 3 VIEWS REASON FOR EXAM: Fracture follow-up TECHNIQUE: 3 view(s) of the left hand COMPARISON: Left hand study of 02/24/2024. RAD/Hand Min 3 Views IMPRESSION: Stable alignment of the mildly over ridden fracture of the proximal to mid left 4th metacarpal bone. Stable alignment of the healing 3rd metacarpal bone. The nondisplaced 5th metacarpal fracture shows stable alignment. Reading Location: [id number]
== END | disposition home or self-care (01) ==
LOC: MTRAD 10:39
PROVIDERS: PCP Internal Medicine; Referring Provider Surgery Plastic and Reconstructive Surgery; Visit Provider Surgery Plastic and Reconstructive Surgery
DX: S62.92XA Unspecified fracture of left hand, initial encounter for closed fracture (principal)
CPT/HCPCS: 73130

== ENCOUNTER → 2024-05-17 | Outpatient (CLI) | payer OTHER, SELFPAY | END | disposition home or self-care (01) | LOC: LABSPEC 08:23 | PROVIDERS: PCP Internal Medicine; Visit Provider Physician Assistant | DX: R82.90 Unspecified abnormal findings in urine (principal) | CPT/HCPCS: 87077; 87086; 87088; 87186 ==

== ENCOUNTER → 2024-06-04 | Outpatient (CLI) | payer OTHER, SELFPAY ==
--- NOTE | 2024-06-04 10:33 | RAD_ITS ---
PROCEDURE: HAND MIN 3 VIEWS 06/04/2024 REASON FOR EXAM: LEFT HAND TECHNIQUE: 3 view(s) of the left hand COMPARISON: 06/04/2024 FINDINGS: No acute fracture or dislocation.Healed fracture deformity of the 3rd and 4th metacarpals with bony callus formation at the cortical margins. The previously identified 5th metacarpal fracture is no longer visible. No soft tissue abnormality. RAD/Hand Min 3 Views IMPRESSION: 1. Healed fractures of the 3rd, 4th and 5th metacarpals. Reading Location: [facility]
== END | disposition home or self-care (01) ==
LOC: MTRAD 10:33
PROVIDERS: PCP Internal Medicine; Referring Provider Surgery Plastic and Reconstructive Surgery; Visit Provider Surgery Plastic and Reconstructive Surgery
DX: S62.92XA Unspecified fracture of left hand, initial encounter for closed fracture (principal)
CPT/HCPCS: 73130

== ENCOUNTER 2024-06-22 10:00 | Outpatient (RCR) | payer OTHER, SELFPAY ==
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
--- NOTE | 2024-02-11 10:35 | HP.OTREVAL ---
Re-Evaluation Intro: Dr. Sandip Montano MD, It has been my pleasure to treat TOMAS TILLEY over the last 20 visits for left 3rd/4th fx metacarpal. Please see the progress note below for an update on the occupational therapy plan of care! Subjective Subjective: arrives this date doing well no new concern went to see nelda yesterday and is cleared back to work. worked last night and went well stated hand was a little painful and swollen during middle of shift. 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 5# L hand lateral pinch 3# L hand tripod pinch 2# Plan Plan Frequency: 1-2x /Week Duration: 2 Months Visits in this POC: (Insurance-No limit- Med Ash[facility]) 2 months (1-2x week) Plan: progress toward composite fist as able Goals Goals Patient Goals: Regain Mobility, Return to Work, Use Hand/Wrist/Arm Normally Again and Be More Independent in ADLS Goal:ROM equal to unaffected hand: Yes Goal:Promotional Model/Pinch strength at least 75% of unaffected hand: Yes Goal:No pain with affected hand use: Yes Goal:Full use of affected hand in daily activities including work: Yes Other Goal: orthosis use: pt will demo understanding of orthosis use, correct donning/doffing and skin care precautions by end of 1st session. Anticipated Interventions Anticipated Interventions Anticipated Interventions: A/AAROM/PROM, Strengthening, Edema Control, Triggerpoint Release, Modalities, Orthoses, Joint Protection/Energy Conservation, Ergonomic Education, Fine Motor Coord/Ishmael, Education re assistive Equipment, Education re Diagnosis and Home Program Re-Evaluation Ending Re-evaluation ending: Please do not hesitate to contact me at [phone] by phone or if you have questions or concerns regarding this new plan of care! Sincerely, Deborah Bishop
--- NOTE | 2024-02-20 10:39 | HP.OTREVAL ---
Re-Evaluation Intro: Dr. Sandip Montano MD, It has been my pleasure to treat TOMAS TILLEY over the last 24 visits for left 3rd/4th fx metacarpal. Please see the progress note below for an update on the occupational therapy plan of care! Subjective Subjective: pt arrives states she continues to use her hand as she can- still having difficulty with composite fist - hook fist is WFL Objective Objective/Function: L hand track repairer helper strength 12# (Prior to therapy) L hand track repairer helper strength 15# (After therapy) left MCP MF 70 passive 80* flexion left MCP RF 60 Passive 70* flexion left MPC LF 20 Passive 30* flexion therapist able to provide traction and joint mobilization gain more PROM- pt tolerating manual stretch but states pretty painful Plan Plan Frequency: 1-2x /Week Duration: 2 Months Visits in this POC: (Insurance-No limit- Med Ashly) 2 months (1-2x week) Plan: work toward end range of motion stretch with MCPJ and PIP flexion of RF and LF joint traction with passive flexion - Goals Goals Patient Goals: Regain Mobility, Return to Work, Use Hand/Wrist/Arm Normally Again and Be More Independent in ADLS Goal:ROM equal to unaffected hand: Yes Goal: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 Anticipated Interventions Anticipated Interventions Anticipated Interventions: A/AAROM/PROM, Strengthening, Edema Control, Triggerpoint Release, Modalities, Orthoses, Joint Protection/Energy Conservation, Ergonomic Education, Fine Motor Coord/Ishmael, Education re assistive Equipment, Education re Diagnosis and Home Program Re-Evaluation Ending Re-evaluation ending: Please do not hesitate to contact me at [phone] by phone or if you have questions or concerns regarding this new plan of care! Sincerely, Ladi Nelson, OTR/L, CHT
== END 2024-06-22 19:00 | disposition home or self-care (01) ==
LOC: OT 10:00
PROVIDERS: PCP Internal Medicine; Referring Provider Surgery Plastic and Reconstructive Surgery; Visit Provider Surgery Plastic and Reconstructive Surgery
DX: S62.92XD Unspecified fracture of left hand, subsequent encounter for fracture with routine healing (principal)
CPT/HCPCS: 97035; 97110; 97112; 97140; 97165; 97530; 97760

== ENCOUNTER 2024-09-02 09:30 | Outpatient (RCR) | payer OTHER, SELFPAY ==
--- NOTE | 2024-11-30 11:56 | HP.OT.NRP ---
Patient Information Patient Information: TOMAS TILLEY was seen in my office for initial evaluation on . The following Plan of Care was established for this patient: POC Established Plan: return for x2week for 3 weeks for dry needling treatment to improve MP ROM Anticipated Interventions Anticipated Interventions: A/AAROM/PROM, Strengthening, Edema Control, Triggerpoint Release, Modalities, Orthoses, Joint Protection/Energy Conservation, Ergonomic Education, Fine Motor Coord/Ishmael, Education re assistive Equipment, Education re Diagnosis and Home Program Last Seen Last Seen: This patient was last seen in our office 09/02/24. Pertinent comments regarding their Occupational therapy will appear below: no further apts have been scheduled and due to time lapse in services pt is d/c at this time. At this point I will be discontinuing this patient from occupational therapy. I would be happy to see this patient again in the future if found appropriate by the physician. Thank you! Ladi Nelson, OTR/L, CHT
== END 2024-09-02 19:00 | disposition home or self-care (01) ==
LOC: OT 09:30
PROVIDERS: PCP Internal Medicine; Referring Provider Surgery Plastic and Reconstructive Surgery; Visit Provider Surgery Plastic and Reconstructive Surgery
DX: S62.92XD Unspecified fracture of left hand, subsequent encounter for fracture with routine healing (principal)
CPT/HCPCS: 97110; 97140; 97530